=== PATIENT | male | born 1990 | race Caucasian/White ===

== ENCOUNTER 2024-02-06 15:44 | Outpatient (AMB) | payer BC, SELFPAY ==
--- NOTE | 2024-02-06 15:07 | MHC.PC.OV ---
Vital Signs 02/06/24 15:49 02/06/24 15:56 Height 5 ft 9.29 in Weight 294 lb BMI 43.0 BP 159/93 H 146/70 H Blood Pressure Location Lt brachial Lt brachial Position Sitting Sitting Respiration 16 Pulse 74 Pulse Source Pulse Oximeter Temp 98.4 F Temp Source Temporal Artery Scan Pulse Oximetry (%) 98 Oxygen Delivery Method Room Air Intake Visit Reasons: Establish Care/ Physical Intake Note: New patient visit Allergies No Known Allergies Allergy (Verified 02/06/24 15:47) Medication List - Last Reconciled 02/06/24 by Maile Marie PA-C clotrimazole 1% 1 appl topical BID 8 weeks Tobacco use date assessed: 02/06/24 Dental Screening Dental Screen Date: 02/06/24 Did you have a dental visit in the last 12 months?: No Did you have a dental problem in the last 6 months where you did not have access to dental care?: No Was dental information given to patient?: Patient has dentist HPI Establish Care/ Physical HPI Details Pt is a 33 y/o male who presents today today to establish care. CV: Bp is 146/70 and then again at 130/82. He is asymptomatic. No hx of this. Derm: On exam today we discussed the bumps on the back of his scalp and the hypopigmentation of his hands and he states that these have been there for years and has slowly progressed and worsened. He would like to see Dermatology. States that he saw a ict support technicians in the past who told him to get a alvarez. States that the white spots are getting larger. The areas are not itchy. Endo: He is noted to have acanthosis nigricans on the skin folds of the neck. He does report some polydipsia and states that he is always drinking water but he has not sure if it is because he is thirsty or not. He does urinate frequently but only during the day. No dysuria, hematuria or flank pain. No fevers or chills. 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 Family hx: Maternal great grandmother had breast cancer, maternal grandmother had thyroid cancer, paternal grandfather had parkinsons, paternal grandmother had unknown cancer Immunizations: reports [facility] Medical History (Updated 02/06/24 @ 16:42 by Maile Marie PA-C) Elevated blood pressure reading in office with diagnosis of hypertension Family History (Updated 02/06/24 @ 15:56 by Tosin De Santiago CMA) Father HTN (hypertension) Maternal Grandmother Thyroid disorder Social History Housing: House Patient Tobacco Use Status: Never used Tobacco e-Cigarette/Vaping Use: Never Used Second Hand Smoke Exposure: Yes service: Yes Current occupational status: employed 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 1. Little interest or pleasure in doing things: not at all 2. Feeling down, depressed, or hopeless: not at all 3. Trouble falling or staying asleep, or sleeping too much: several days 4. Feeling tired or having little energy: several days 5. Poor appetite or overeating: not at all 6. Feeling bad about yourself - or that you are a failure or have let yourself or your family down: not at all 7. Trouble concentrating on things, such as reading the newspaper or watching television: not at all 8. Moving or speaking so slowly that other people could have noticed. Or the opposite - being so fidgety or restless that you have been moving around a lot more than usual: not at all 9. Thoughts that you would be better off or of hurting yourself in some way: not at all Total score: 2 Depression Screening Done: Yes 31736 - PHQ-9 Billing: Yes Source: Developed by Drs. Jr Oconnor, Liliam Thomas, Mayco Pichardo and colleagues, with an educational ping from [employer]. Thrive Questionnaire Date Thrive assessed: 02/06/24 I am a: Patient What is your living situation today?: I have a steady place to live Within the past 12 months, did the food you bought not last and you didn't have the money to get more?: Never true Within the past 12 months, did you worry whether your food would run out before you got money to buy more?: Never true Do you have trouble paying for medicines?: No Do you have trouble getting transportation to medical appointments?: No Do you have trouble paying your heating and electricity bill?: No Do you have trouble taking care of your child, family member or friend?: No Do you have trouble with day-to-day activities such as bathing, preparing meals, shopping, managing finances, etc.?: No Are you currently unemployed and looking for a job?: No Are you interested in more education?: Yes Please select the resources that you would like help with: None THRIVE Score: 0 AUDIT C Alcohol Use Questionnaire (AUDIT-C) 1. How often do you have a drink containing alcohol?: Monthly or less 2. How many drinks containing alcohol do you have on a typical day when you are drinking?: 5 or 6 3. How often do you have six or more drinks on one occasion?: Never Total Score: 3 SANKET-7 AMB Questionnaire SANKET-7 Date SANKET - 7 assessed: 02/06/24 Feeling nervous, anxious, or on edge: 1 = Several days Not being able to stop or control worryin = Several days Worrying too much about different things: 1 = Several days Trouble relaxin = Several days Being so restless that it is hard to sit still: 0 = Not at all Becoming easily annoyed or irritable: 0 = Not at all Feeling afraid as if something awful might happen: 0 = Not at all Total SANKET-7 score (0-4 normal; 5-9 mild; 10-14 moderate; 15-21 severe): 4 Source: Developed by Drs. Jr Oconnor, Liliam Thomas, Mayco Pichardo and colleagues, with an educational ping from [employer]. SANKET-7 Assessment Billing SANKET-7 Assessment Tool: SANKET-7 Assessment 80652 Physical exam (Primary Care) Vital Signs: Last Vital Signs Temp 98.4 F 02/06/24 15:49 Pulse 74 02/06/24 15:49 Resp 16 02/06/24 15:49 BP 146/70 H 02/06/24 15:56 Pulse Ox 98 02/06/24 15:49 Oxygen Delivery Method Room Air 02/06/24 15:49 BMI result Body Mass Index 25.8 BMI Assessment/Plan discussion: High BMI High, discussed plan: lifestyle, weight reduction, dietary and physical activity Tobacco/Smoking Status: Tobacco use Status Tobacco use date assessed 02/06/24 02/06/24 15:52 Patient Tobacco Use Status Never used Tobacco 02/06/24 15:52 e-Cigarette/Vaping Use Never Used 02/06/24 15:52 Const Orientation/consciousness: patient oriented x3 HENMT Ears: hearing grossly normal bilaterally and TM's normal bilaterally General nose exam: No nasal polyps present Face and sinus: Yes sinuses nontender Mouth: Normal oral and palatal mucosa present Eyes Pupils: Equal, round and reactive pupils present EOM: EOMs intact bilaterally Neck Neck: Yes full ROM and Yes no lymphadenopathy Thyroid: Thyroid normal Chest Chest palpation & inspection: normal inspection of the chest Resp Auscultation: clear to auscultation bilaterally Cardio Rate: regular rate Rhythm: regular rhythm Heart sounds: S1 normal heart sound present and S2 normal heart sound present Peripheral pulses: Peripheral pulses 2+ throughout GI Other: Soft, nontender Auscultation: normal bowel sounds Rectal Exam - Male: Yes deferred General: Yes no CVA tenderness Back/Spine/Pelvis Other: Nontender Back: no CVA tenderness Skin Other: Papules noted throughout the posterior scalp. Hypopigmentation lesions that are flat noted on the dorsum of the hands and extending onto the forearm. There is hyperpigmentation noted in the skin folds of the neck. Neuro General: patient oriented x3, gait normal, CN's II-XI intact bilaterally and deep tendon reflexes 2+ bilaterally Cranial nerves: Yes Equal, round and reactive pupils present Motor exam (neuro): 5/5 motor strength present throughout Sensory Exam: double simultaneous stimulation for sensation normal Coordination: [id number] test normal and Romberg test negative Extrem General: Yes normal to inspection and Yes full ROM Psych Affect: normal affect Attitude: cooperative Thought process: Normal thought process present Thought content: Normal thought content present Insight: Good insight present (Psych) Judgement: Good judgement present (Psych) Assessment and Plan Assessment & Plan (1) Routine general medical examination at a health care facility: Code(s): Z00.00 - Encounter for general adult medical examination without abnormal findings Plan: Health maintenance reviewed. Labs ordered today. STD testing ordered (2) Elevated blood pressure reading in office with diagnosis of hypertension: Code(s): I10 - Essential (primary) hypertension Plan: Blood pressure elevated today above goal. We will follow up in 1 week to be reassessed. Sooner if needed. (3) Acanthosis nigricans: Code(s): L83 - Acanthosis nigricans Plan: ? Diabetes. He does report some polydipsia but also states it could be his baseline. Orders: Orders Comprehensive [place]. Panel Fast Today I10 - Essential (primary) hypertension, Z00.00 - Encounter for general adult medical examination without abnormal findings Lipid Panel Today I10 - Essential (primary) hypertension, Z00.00 - Encounter for general adult medical examination without abnormal findings HIV Ab/Ag Today Z11.3 - Encounter for screening for infections with a predominantly sexual mode of transmission CT NG by PCR Today Z11.3 - Encounter for screening for infections with a predominantly sexual mode of transmission Hemoglobin A1c Today I10 - Essential (primary) hypertension, L83 - Acanthosis nigricans Complete Blood Count Auto Diff Today I10 - Essential (primary) hypertension, Z00.00 - Encounter for general adult medical examination without abnormal findings TSH reflex Free T4 Today I10 - Essential (primary) hypertension, Z00.00 - Encounter for general adult medical examination without abnormal findings Syphilis Screen Today Z11.3 - Encounter for screening for infections with a predominantly sexual mode of transmission Hepatitis C Antibody Today Z11.3 - Encounter for screening for infections with a predominantly sexual mode of transmission Referrals Dermatology Referral L73.9 - Follicular disorder, unspecified, L81.9 - Disorder of pigmentation, unspecified Medications: New clotrimazole 1% 1 appl topical BID 8 weeks 45 grams 1RF Coding Level of Care Code New Pt Prev Care 18-39yr(36220 Diagnoses Routine general medical examination at a health care facility Z00.00 Elevated blood pressure reading in office with diagnosis of hypertension I10 Acanthosis nigricans L83 Additional Codes SANKET-7 Assessment Billing - SANKET-7 Assessment Tool: SANKET-7 Assessment 18391 ([id number])
[2024-02-06 15:49] VITALS: BP 159/93; PULSE 74; RESP 16; TEMP 36.9; O2SAT 98; BMI 43.0
[2024-02-06 15:56] VITALS: BP 146/70
== END 2024-02-06 16:43 | disposition home or self-care (01) ==
PROVIDERS: Visit Provider Physician Assistant
DX: Z00.00 Encounter for general adult medical examination without abnormal findings (principal); I10 Essential (primary) hypertension; L83 Acanthosis nigricans
CPT/HCPCS: 99385

== ENCOUNTER 2024-02-09 13:03 | Outpatient (REF) | payer BC, SELFPAY ==
[2024-02-09 13:34] LABS: MANUAL DIFF FLAG NO
[2024-02-09 13:35] LABS: Basophils Absolute Auto 0.1 X10*3/uL (0.0-0.2); Basophils Percent Auto 0.8 % (0-2); Eosinophils Absolute Auto 0.2 X10*3/uL (0.0-0.4); Eosinophils Percent Auto 1.6 % (0-4); Hemoglobin 14.8 g/dl (14.0-18.0); Imm Gran Abs Auto 0.05 X10*3/uL (0.00-0.03); Imm Gran Pct Auto 0.5 % (0.0-0.4); Lymphocytes Absolute Auto 3.2 X10*3/uL (1.2-4.9); Lymphocytes Percent Auto 29.3 % (20-40); Mean Corpuscular HGB Conc 35.2 g/dl (31.0-36.0); Mean Platelet Volume 10.6 fL (9.4-12.4); Monocytes Absolute Auto 0.8 X10*3/uL (0.1-1.2); Monocytes Percent Auto 7.2 % (2-11); Neutrophils Absolute Auto 6.6 x10*3/uL (2.0-8.3); Neutrophils Percent Auto 60.6 % (45-73); Platelet Count 311 X10*3/uL (160-400); Red Blood Count 4.94 X10*6/uL (4.60-5.80); Red Cell Distribution Width 12.4 % (11.0-16.0)
[2024-02-09 13:56] LABS: Estimated Average Glucose 105 mg/dL; Hemoglobin A1c % 5.3 % (<6.0)
[2024-02-09 14:16] LABS: Alanine Aminotransferase 54 U/L (0-40); Albumin Level 4.4 g/dL (3.5-5.0); Alkaline Phosphatase 79 U/L (39-117); Anion Gap 14 (12-20); Aspartate Amino Transferase 34 U/L (5-37); Bilirubin Total 0.9 mg/dL (0.0-1.0); Blood Urea Nitrogen 10 mg/dL (9-16); Calcium 9.8 mg/dL (8.4-10.2); Carbon Dioxide 26 mmol/L (22-29); Chloride 104 mmol/L (96-108); Cholesterol 159 mg/dL (<200); Estimated Glomerular Filt Rate > 60; Glucose Fasting 85 mg/dL (60-99); HDL Cholesterol 32 mg/dL (>40); LDL Cholesterol Calculated 104 mg/dL (<100); Sodium 140 mmol/L (135-145); Total Protein 7.8 g/dL (6.5-8.0); Triglycerides 117 mg/dL (<150)
[2024-02-09 14:31] LABS: HIV AB/AG Nonreactive (Nonreactive); HIV Num 1 0.06 S/CO (0.00-0.99); TSH reflex Free T4 0.43 uIU/mL (0.32-4.0); ~HepC Num1 0.11 S/CO (0.00-0.79); ~Hepatitis C Antibody Nonreactive (Nonreactive)
[2024-02-09 14:32] LABS: Syphilis Screen Nonreactive (Nonreactive)
== END 2024-02-09 13:04 | disposition home or self-care (01) ==
LOC: HO.HMGCLDS 13:03
PROVIDERS: PCP Physician Assistant; Visit Provider Physician Assistant
DX: Z00.00 Encounter for general adult medical examination without abnormal findings (principal); I10 Essential (primary) hypertension; Z11.3 Encounter for screening for infections with a predominantly sexual mode of transmission; L83 Acanthosis nigricans
CPT/HCPCS: 36415; 80053; 80061; 83036; 84443; 85025; 86780; 86803; 87389

== ENCOUNTER 2024-02-14 08:42 | Outpatient (AMB) | payer BC, SELFPAY ==
--- NOTE | 2024-02-14 08:46 | MHC.PC.OV ---
Vital Signs 02/14/24 08:49 Height 5 ft 9.29 in Weight 290 lb BMI 42.5 BP 128/84 Blood Pressure Location Lt brachial Position Sitting Pulse 82 Pulse Source Pulse Oximeter Pulse Oximetry (%) 98 Oxygen Delivery Method Room Air Intake Visit Reasons: bp and lab review Allergies No Known Allergies Allergy (Verified 02/14/24 08:47) Tobacco use date assessed: 02/06/24 Dental Screening Dental Screen Date: 02/06/24 HPI bp and lab review HPI Details Pt is a 33 y/o male who presents today today for a follow up blood pressure check. He has no acute concerns today. States that he has worked on his diet since our last visit. CV: Bp is 128/84. He states that they have been lower at as well. He has been cooking his own food now and bringing it to work instead of eating as much fast food. Derm: He has an appointment with [facility] next week. Endo: He is noted to have acanthosis nigricans on the skin folds of the neck. His A1c is 5.3. GI: Last LFTs did come back slightly elevated. Patient states he was going out to eat and eating fast food more than he should. Since our last visit he is made diet changes. 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 Jr Oconnor, Liliam Thomas, Mayco Pichardo and colleagues, with an educational ping from [employer]. Physical exam (Primary Care) Vital Signs: Last Vital Signs Pulse 82 02/14/24 08:49 BP 128/84 06/13/24 08:49 Pulse Ox 98 02/14/24 08:49 Oxygen Delivery Method Room Air 02/14/24 08:49 BMI result Body Mass Index 42.5 Tobacco/Smoking Status: Tobacco use Status Tobacco use date assessed 02/06/24 02/06/24 15:52 Patient Tobacco Use Status Never used Tobacco 02/06/24 15:52 e-Cigarette/Vaping Use Never Used 02/06/24 15:52 Thrive Assessment: Date of Thrive Assessment Date Thrive assessed 02/06/24 02/06/24 16:05 Const Orientation/consciousness: patient oriented x3 HENMT Ears: hearing grossly normal bilaterally Neck Thyroid: Thyroid normal Lymphatic: no lymphadenopathy noted Resp Auscultation: clear to auscultation bilaterally Cardio Rate: regular rate Rhythm: regular rhythm Heart sounds: S1 normal heart sound present and S2 normal heart sound present GI Inspection: Yes normal to inspection Palpation (GI): Soft to palpation and Other GI palpation findings present (nontender, no cva tenderness) Auscultation: normoactive bowel sounds Rectal Exam - Male: Yes deferred Skin General skin exam: no rashes or lesions noted Neuro General: patient oriented x3, gait normal and no focal motor deficits Results Reviewed Results Reviewed: Laboratory Tests 02/09/24 13:08 WBC 11.0 H RBC 4.94 Hgb 14.8 Hct 42.0 Plt Count 311 Sodium 140 Potassium 4.0 Creatinine 0.84 Estimated GFR > 60 Fasting Glucose 85 Estimat Average Glucose 105 Hemoglobin A1c % 5.3 AST 34 ALT 54 H Alkaline Phosphatase 79 Triglycerides 117 Cholesterol 159 LDL Cholesterol, Calc 104 H HDL Cholesterol 32 L TSH 0.43 Assessment and Plan Assessment & Plan (1) Elevated LFTs: Code(s): R79.89 - Other specified abnormal findings of blood chemistry Plan: Repeat labs ordered. Advised patient to complete these. We will follow up pending test results. (2) Elevated blood-pressure reading without diagnosis of hypertension: Code(s): R03.0 - Elevated blood-pressure reading, without diagnosis of hypertension Plan: Blood pressure better today. We will continue to monitor at home. Encouraged him to continue with his diet and lifestyle modifications. Follow up as needed. Patient understands and agrees with the plan. Coding Level of Care Code Est Pt Level 4 (86082) Diagnoses Elevated LFTs R79.89 Elevated blood-pressure reading without diagnosis of hypertension R03.0
[2024-02-14 08:49] VITALS: BP 128/84; PULSE 82; O2SAT 98; BMI 42.5
== END 2024-02-14 09:10 | disposition home or self-care (01) ==
PROVIDERS: Visit Provider Physician Assistant
DX: R79.89 Other specified abnormal findings of blood chemistry (principal); R03.0 Elevated blood-pressure reading, without diagnosis of hypertension
CPT/HCPCS: 99214

== ENCOUNTER 2024-03-01 13:49 | Outpatient (REF) | payer BC, SELFPAY ==
[2024-03-01 15:45] LABS: MANUAL DIFF FLAG NO
[2024-03-01 15:48] LABS: Basophils Absolute Auto 0.1 X10*3/uL (0.0-0.2); Basophils Percent Auto 0.8 % (0-2); Eosinophils Absolute Auto 0.2 X10*3/uL (0.0-0.4); Eosinophils Percent Auto 1.5 % (0-4); Hematocrit 41.9 % (42.0-52.0); Hemoglobin 14.5 g/dl (14.0-18.0); Imm Gran Abs Auto 0.04 X10*3/uL (0.00-0.03); Imm Gran Pct Auto 0.3 % (0.0-0.4); Lymphocytes Absolute Auto 3.6 X10*3/uL (1.2-4.9); Mean Corpuscular HGB Conc 34.6 g/dl (31.0-36.0); Mean Corpuscular Hemoglobin 29.7 pg (27.0-33.0); Mean Corpuscular Volume 85.9 fL (80.0-98.0); Mean Platelet Volume 11.2 fL (9.4-12.4); Monocytes Absolute Auto 0.9 X10*3/uL (0.1-1.2); Monocytes Percent Auto 7.4 % (2-11); Neutrophils Absolute Auto 6.8 x10*3/uL (2.0-8.3); Platelet Count 326 X10*3/uL (160-400); Red Blood Count 4.88 X10*6/uL (4.60-5.80); Red Cell Distribution Width 12.5 % (11.0-16.0); White Blood Count 11.5 X10*3/uL (4.8-10.8)
[2024-03-01 16:04] LABS: Alanine Aminotransferase 50 U/L (0-40); Albumin Level 4.4 g/dL (3.5-5.0); Alkaline Phosphatase 87 U/L (39-117); Aspartate Amino Transferase 28 U/L (5-37); Bilirubin Direct 0.1 mg/dL (0.0-0.5); Bilirubin Total 0.4 mg/dL (0.0-1.0); Total Protein 7.8 g/dL (6.5-8.0)
== END 2024-03-01 13:50 | disposition home or self-care (01) ==
LOC: HO.HMGCLDS 13:49
PROVIDERS: PCP Physician Assistant; Visit Provider Physician Assistant
DX: R79.89 Other specified abnormal findings of blood chemistry (principal)
CPT/HCPCS: 36415; 80076; 85025

== ENCOUNTER 2024-03-14 07:58 | Outpatient (REF) | payer BC, SELFPAY ==
--- NOTE | ~2024-03-14 | US_ITS ---
EXAMINATION: US ABDOMEN COMPLETE CLINICAL INFORMATION: Other specified abnormal findings of blood chemistry. COMPARISON: None available. TECHNIQUE: Real-time imaging of the abdominal viscera. FINDINGS: PANCREAS: Largely obscured by overlapping bowel gas. ABDOMINAL AORTA: The proximal segment is obscured by overlapping bowel gas. The mid and distal segments are normal in caliber. INFERIOR VENA CAVA: Visualized portions are normal. LIVER: The liver is normal in size. The liver contour is normal. There is diffuse increased liver parenchymal echogenicity. No focal hepatic lesion. There is no intrahepatic biliary duct dilatation seen. GALLBLADDER: Normal. The gallbladder is physiologically distended without evidence of stones, sludge, polyps, wall thickening or pericholecystic fluid. COMMON BILE DUCT: Normal in caliber measuring 0.3 cm in diameter. RIGHT KIDNEY: Normal. No hydronephrosis. No renal calculi or focal parenchymal lesions. The kidney measures 11.5 cm in maximum dimension. LEFT KIDNEY: Normal. No hydronephrosis. No renal calculi or focal parenchymal lesions. The kidney measures 13.3 cm in maximum dimension. SPLEEN: The spleen measures 14.5 cm in maximum dimension. No focal finding. FREE FLUID: None. US/US abdomen complete IMPRESSION: 1. There is generalized increase in hepatic echotexture, consistent with fatty infiltration or hepatocellular disease. Please correlate clinically. No focal hepatic mass or intrahepatic biliary dilatation is seen. 2. There is mild splenomegaly. 3. Technically limited ultrasound examination of the pancreas and abdominal great vessels.
== END 2024-03-14 07:59 | disposition home or self-care (01) ==
LOC: HO.US 07:58
PROVIDERS: PCP Physician Assistant; Visit Provider Physician Assistant
DX: R79.89 Other specified abnormal findings of blood chemistry (principal)
CPT/HCPCS: 76700